=== PATIENT | female | born 1940 | race Caucasian/White ===

== ENCOUNTER 2019-12-27 13:57 | Observation (INO) ==
--- NOTE | 2019-12-27 14:40 | Emergency Department Note ---
History of Present Illness General Chief complaint: Chest Pain Time Seen by Provider: 12/27/19 14:23 Source: patient History of Present Illness Provider complaint: Chest pain Onset (ago): hour(s) Location: chest Radiation: back Pain Consistency: + now resolved Quality: + other (Heaviness, electric shock and indigestion) Relieved By: + none Exacerbated By: + none Associated symptoms: + cough (Mild nonproductive cough started this morning), + headaches, + shortness of breath (Mild shortness of breath with chest pain now resolved) and + other (Difficulty finding words since Monday); no fever/chills, no malaise and no nausea/vomiting This is a 79-year-old female with a history of hemorrhagic CVA and atrial fibrillation presenting with chest pain starting approximately 9 AM this morning. She describes it as a heaviness with electric shocks and indigestion in the left side of her chest rating to her back. No modifying factors. It was associated with some mild shortness of breath which is now resolved. She also states that she developed a mild cough this morning. She denies any loss of taste or smell, abdominal pain, diarrhea, fever, malaise or known exposure to COVID-19. She does state that the chest pain is now resolved. She also states that she had difficulty finding words for several hours on Monday. She states that she has not returned to herself and sometimes feels like she has to struggle to remember words. She does state that she saw her research consultant recently who placed her on water pills for swelling in both of her legs. She denies any numbness or weakness in her arms or legs except for some tingling in both her arms which is normal for her due to her carpal tunnel syndrome. She denies any trouble walking. Home Medications Home Medications Medication Instructions Recorded Confirmed Type amlodipine 5 mg PO DAILY 12/27/19 12/27/19 History cholecalciferol (vitamin D3) 25 mcg PO DAILY 12/27/19 12/27/19 History [Vitamin D3] cyanocobalamin (vitamin B-12) 1,000 mcg PO DAILY 12/27/19 12/27/19 History [Vitamin B-12] dicyclomine [Bentyl] 10 mg PO QID PRN 12/27/19 12/27/19 History fluticasone propionate [Flonase 1 spray INTRANASAL BID 12/27/19 12/27/19 History Allergy Relief] furosemide [Lasix] 20 mg PO Q OTHER DAY 12/27/19 12/27/19 History hydrocortisone 1 applic TOPICAL BID PRN 12/27/19 12/27/19 History levetiracetam [Keppra] 1,000 mg PO BID 12/27/19 12/27/19 History losartan [Cozaar] 100 mg PO DAILY 12/27/19 12/27/19 History magnesium oxide 400 mg PO DAILY 12/27/19 12/27/19 History metoprolol succinate [Toprol XL] 12.5 mg PO DAILY 12/27/19 12/27/19 History omeprazole 20 mg PO DAILY 12/27/19 12/27/19 History potassium chloride [Klor-Con M10] 10 meq PO UD 12/27/19 12/27/19 History ropinirole [Requip] 0.25 mg PO HS 12/27/19 12/27/19 History rosuvastatin [Crestor] 20 mg PO DAILY 12/27/19 12/27/19 History sertraline [Zoloft] 25 mg PO DAILY 12/27/19 12/27/19 History Allergies Allergy/AdvReac Type Severity Reaction Status Date / Time kiwi Allergy Intermediate ITCHY Verified 12/27/19 16:19 lactulose AdvReac Gastrointestinal Verified 12/27/19 16:19 Upset Past Med/Surg History Medical History Carpal tunnel syndrome Cerebral amyloid angiopathy GERD (gastroesophageal reflux disease) Hemorrhagic stroke HTN (hypertension) Paroxysmal atrial fibrillation Paroxysmal atrial tachycardia RLS (restless legs syndrome) Seizure disorder Surgical History (Updated 12/27/19 @ 17:02 by Jackie Schreiber PA-C) H/O: hysterectomy Hx of colonoscopy S/P cholecystectomy Family History Other Cancer Diabetes Heart disease Social History Smoking Status: Never smoker Hx Alcohol Use: Yes Preferred Language: [place] Citizen Current Living Situation: Family Feels Safe at Home: Yes Review of Systems See HPI for pertinent positives & negatives. and A total of 10 systems reviewed and were otherwise negative Physical Exam Vital Signs Vital Signs - 24 hr 12/27/19 14:00 12/27/19 14:06 12/27/19 14:11 Temperature 36.4 C L Temperature Source Oral Pulse Rate 62 79 71 Pulse Rate from SpO2 Sensor 68 65 Pulse Rhythm Regular Pulse Strength Normal Respiratory Rate 20 19 21 Respiratory Effort / Characteristics Non-Labored Spontaneous Respiratory Depth Normal Respiratory Pattern Regular Blood Pressure 191/82 H 191/82 H Blood Pressure Mean 118 98 Blood Pressure Position Sitting Pulse Oximetry 100 97 98 Oxygen Delivery Method Room Air Sepsis Recent Fever Within 48 Hours No Sepsis New/Unexplained Change in Mental Status No Sepsis Action Taken by Nursing No Action Required 12/27/19 14:30 12/27/19 14:51 12/27/19 16:13 Temperature Temperature Source Pulse Rate 62 60 Pulse Rate from SpO2 Sensor 64 61 Pulse Rhythm Pulse Strength Respiratory Rate 12 23 Respiratory Effort / Characteristics Respiratory Depth Respiratory Pattern Blood Pressure 164/88 H Blood Pressure Mean 98 Blood Pressure Position Pulse Oximetry 99 99 98 Oxygen Delivery Method Room Air Room Air Sepsis Recent Fever Within 48 Hours Sepsis New/Unexplained Change in Mental Status Sepsis Action Taken by Nursing 12/27/19 16:30 12/27/19 17:00 12/27/19 17:30 Temperature Temperature Source Pulse Rate 60 65 67 Pulse Rate from SpO2 Sensor 59 L 68 67 Pulse Rhythm Pulse Strength Respiratory Rate 20 19 18 Respiratory Effort / Characteristics Respiratory Depth Respiratory Pattern Blood Pressure 154/86 H 159/87 H 172/118 H Blood Pressure Mean 100 127 147 Blood Pressure Position Pulse Oximetry 93 96 98 Oxygen Delivery Method Room Air Sepsis Recent Fever Within 48 Hours Sepsis New/Unexplained Change in Mental Status Sepsis Action Taken by Nursing 12/27/19 19:12 12/27/19 19:24 Temperature Temperature Source Pulse Rate 71 71 Pulse Rate from SpO2 Sensor 68 Pulse Rhythm Pulse Strength Respiratory Rate 17 17 Respiratory Effort / Characteristics Respiratory Depth Respiratory Pattern Blood Pressure 165/103 H 165/103 H Blood Pressure Mean 135 Blood Pressure Position Pulse Oximetry 97 97 Oxygen Delivery Method Room Air Room Air Sepsis Recent Fever Within 48 Hours Sepsis New/Unexplained Change in Mental Status Sepsis Action Taken by Nursing Constitutional: Vital signs reviewed. Eyes: Pupils are equal round reactive to light. Conjunctiva are noninjected. ENT: Pharynx is clear without erythema or exudate. Mucous membranes are moist. Neck supple without meningeal signs. Respiratory: Clear to auscultation bilaterally. Breath sounds are equal b ilaterally. Cardiovascular: Regular rate and rhythm. No rubs or gallops. GI: Soft, nondistended and nontender. Bowel sounds are present. Musculoskeletal: No peripheral edema. No lower extremity tenderness. Integumentary: No cyanosis. or jaundice. Neurologic: The patient is awake and alert. Cranial nerves II-XII are intact. Motor is 5 out of 5 all extremities. Sensation is intact to light touch all extremities. Normal speech. No pronator drift. No limb ataxia. Psychiatric: Normal affect. Not anxious appearing. Course Administered Medications Discontinued Medications Furosemide (Furosemide 40 Mg Tab) 20 mg PO ONE STA Stop: 12/27/19 18:05 Last Admin: 12/27/19 18:42 Dose: 20 mg Documented by: [id number] Nitroglycerin (Nitroglycerin 2% Ointment 30gm Tube) 0.5 inch EXT NOW ONE Stop: 12/27/19 15:58 Last Admin: 12/27/19 16:15 Dose: 0.5 inch Documented by: [id number] Medical Decision Making Differential Diagnosis Unstable angina, [place], CVA, intracranial hemorrhage, pleurisy, pneumonia Medical Records Attestation: I reviewed the patient's medical records. I did perform a limited focused review of portions of the patient's old chart on the electronic medical record. The patient has had no recent pertinent visits to this hospital. Home Medications Current Medication List: was personally reviewed by me Laboratory Data Attestation: I reviewed the patient's lab results. Result diagrams: 12/27/19 14:18 12/27/19 14:18 Lab Results 12/27/19 12/27/19 12/27/19 Range/Units 14:18 14:18 14:18 WBC 4.78 L (4.8-10.8) K/uL RBC 4.77 (4.2-5.4) M/uL Hgb 14.3 (12.0-16.0) g/dL Hct 41.6 (37-47) % MCV 87.2 (80-100) fL MCH 30.0 (25-34) pg MCHC 34.4 (32-36) g/dL RDW Std Deviation 41.5 (36.4-46.3) fL RDW Coeff of Monica 12.9 (11.5-14.5) % Plt Count 156 (130-400) K/uL MPV 11.1 H (7.4-10.4) fL Immature Gran % (Auto) 0.2 % Neut % (Auto) 66.1 % Lymph % (Auto) 23.2 % [place] % (Auto) 8.2 % Eos % (Auto) 2.1 % Baso % (Auto) 0.2 % Neut # (Auto) 3.16 (1.4-6.5) K/uL Lymph # (Auto) 1.11 L (1.2-3.4) K/uL [place] # (Auto) 0.39 (0.11-0.59) K/uL Eos # (Auto) 0.10 (0-0.5) K/uL Baso # (Auto) 0.01 (0-0.2) K/uL Immature Gran # (Auto) 0.01 (0.00-0.02) K/uL PT 10.8 (9.0-12.0) Seconds INR 1.0 (0.9-1.1) APTT 30.9 (21.0-31.0) Seconds PTT Ratio 1.1 Sodium 139 (136-145) mmol/L Potassium 3.7 (3.5-5.1) mmol/L Chloride 109 H (98-107) mmol/L Carbon Dioxide 26 (21-32) mmol/L Anion Gap 4.0 (3-11) BUN 11 (7-18) mg/dl Creatinine 0.82 (0.6-1.2) mg/dl Est Cr Clr Drug Dosing 56.2 ml/min Est GFR ( Amer) 78.9 Est GFR (Non-Af Amer) 68.1 BUN/Creatinine Ratio 13.4 (10-20) Glucose 94 (70-99) mg/dl Calcium 9.0 (8.5-10.1) mg/dl Total Bilirubin 0.5 (0.2-1) mg/dl AST 18 (15-37) U/L ALT 23 (12-78) U/L Alkaline Phosphatase 118 H (45-117) U/L Troponin I < 0.015 (0-0.045) ng/ml Total Protein 7.7 (6.4-8.2) gm/dl Albumin 3.7 (3.4-5.0) gm/dl Globulin 4.0 (2.5-4.0) gm/dl Albumin/Globulin Ratio 0.9 (0.9-2) COVID-19 Eval Order SARS-CoV-2, RNA, NAAT (NEGATIVE) 12/27/19 12/27/19 Range/Units 16:30 16:30 WBC (4.8-10.8) K/uL RBC (4.2-5.4) M/uL Hgb (12.0-16.0) g/dL Hct (37-47) % MCV (80-100) fL MCH (25-34) pg MCHC (32-36) g/dL RDW Std Deviation (36.4-46.3) fL RDW Coeff of Monica (11.5-14.5) % Plt Count (130-400) K/uL MPV (7.4-10.4) fL Immature Gran % (Auto) % Neut % (Auto) % Lymph % (Auto) % [place] % (Auto) % Eos % (Auto) % Baso % (Auto) % Neut # (Auto) (1.4-6.5) K/uL Lymph # (Auto) (1.2-3.4) K/uL [place] # (Auto) (0.11-0.59) K/uL Eos # (Auto) (0-0.5) K/uL Baso # (Auto) (0-0.2) K/uL Immature Gran # (Auto) (0.00-0.02) K/uL PT (9.0-12.0) Seconds INR (0.9-1.1) APTT (21.0-31.0) Seconds PTT Ratio Sodium (136-145) mmol/L Potassium (3.5-5.1) mmol/L Chloride (98-107) mmol/L Carbon Dioxide (21-32) mmol/L Anion Gap (3-11) BUN (7-18) mg/dl Creatinine (0.6-1.2) mg/dl Est Cr Clr Drug Dosing ml/min Est GFR ( Amer) Est GFR (Non-Af Amer) BUN/Creatinine Ratio (10-20) Glucose (70-99) mg/dl Calcium (8.5-10.1) mg/dl Total Bilirubin (0.2-1) mg/dl AST (15-37) U/L ALT (12-78) U/L Alkaline Phosphatase (45-117) U/L Troponin I (0-0.045) ng/ml Total Protein (6.4-8.2) gm/dl Albumin (3.4-5.0) gm/dl Globulin (2.5-4.0) gm/dl Albumin/Globulin Ratio (0.9-2) COVID-19 Eval Order Cov[facility]19 [facility] SARS-CoV-2, RNA, NAAT NEGATIVE (NEGATIVE) Imaging Data Radiologist's Impression: CT head/brain wo con CLINICAL HISTORY: Achalasia. Possible acute stroke COMPARISON STUDY: 06/02/2015 TECHNIQUE: Axial CT of the brain is performed from the vertex to the skull base. IV contrast was not administered for this examination. A dose lowering technique was utilized adhering to the principles of ALARA. CT DOSE: 537.48 mGy.cm FINDINGS: No intra or extra-axial mass lesions are visualized. There is no CT evidence of acute cortical infarction. There is no evidence of midline shift. There is no acute hemorrhage. No calvarial fractures are visualized. There are moderate white matter hypodensities likely on a small vessel basis. There is no evidence of pathologic ventricular dilatation. There is no evidence of acute sinusitis IMPRESSION: No acute intracranial findings ACT 112: Negative or not required by law. Electronically signed by: Rory Gallegos M.D. 12/27/2019 3:02 PM XR chest 1V portable CLINICAL HISTORY: Atypical chest pain COMPARISON STUDY: No previous studies for comparison. FINDINGS: The heart is mildly enlarged. There is no failure. There are subtle interstitial basilar opacities likely atelectatic although an infectious/inflammatory processes could appear similar. There are no pleural effusions.[ IMPRESSION: 1. Mild cardiomegaly 2. Subtle basilar opacities statistically atelectatic although an infectious/inflammatory process could appear similar ACT 112: Negative or not required by law. Electronically signed by: Rory Gallegos M.D. 12/27/2019 2:56 PM ECG Data Attestation: I personally reviewed and interpreted this ECG as follows: Indication: + chest pain Rate (beats per minute): 67 Rhythm: + normal sinus ECG [place]: + Normal ECG ST segments: no ST elevation ECG Findings: + PACs MDM Narrative I did evaluate the patient as noted above. The patient is presenting with episodic chest pain since this morning. She is not currently having any chest discomfort. She also has strokelike symptoms starting several days ago which have improved significantly but she states she does not feel back to baseline. She is neurologically intact on exam without any signs of aphasia. She does have a prior history of hemorrhagic stroke and so does not take any anticoagulation or aspirin. IV access was established. I did place an order for continuous cardiac monitoring. The monitor showed Normal sinus rhythm at a rate of 66 bpm. I did order and personally review the patient's 12-lead EKG as described above. She has no acute ischemic findings. I did order and personally reviewed the images of the patient's chest x-ray as described above. There is no evidence of pneumonia or consolidation. I did order and review the patient's blood work as noted in the electronic medical record. CBC shows mild leukopenia. She is not anemic. Electrolytes are unremarkable. Troponin is negative. I did order a CT of the head. I did review the images myself as well as the radiology report as described above. There is no evidence of acute intracranial abnormality. I did reassess the patient. She remains asymptomatic. She is still hypertensive and so I did give her nitroglycerin paste half inch to the anterior chest wall. Her blood pressure did come down to 164/88. I did recommend hospitalization for further evaluation of her symptoms. I did discuss the case with the hospitalist and correctional case records supervisor. Impression & Plan Chest pain, Stroke-like symptom Discharge Plan Visit Data Chief Complaint: Chest Pain ED Provider: Bob Dueñas Discharge Problem: Chest pain, Stroke-like symptom Patient Disposition: Being Evaluated by Hospitalist Discharge Instructions Interventions: ED Discharge Assessment Last Done: 12/27/19 19:24 Forms Stand Alone Forms: [facility] Prescriptions Prescriptions: No Action cyanocobalamin (vitamin B-12) [Vitamin B-12] 1,000 mcg Tablet 1,000 mcg PO DAILY RF: 0 amlodipine 5 mg tablet 5 mg PO DAILY RF: 0 ropinirole [Requip] 0.25 mg tablet 0.25 mg PO HS RF: 0 sertraline [Zoloft] 25 mg tablet 25 mg PO DAILY RF: 0 omeprazole 20 mg capsule,delayed release(DR/EC) 20 mg PO DAILY RF: 0 hydrocortisone 2.5 % cream 1 applic TOPICAL BID PRN (Reason: REDNESS ON FACE) RF: 0 furosemide [Lasix] 20 mg tablet 20 mg PO Q OTHER DAY RF: 0 metoprolol succinate [Toprol XL] 25 mg tablet extended release 24 hr 12.5 mg PO DAILY RF: 0 losartan [Cozaar] 100 mg tablet 100 mg PO DAILY RF: 0 fluticasone propionate [Flonase Allergy Relief] 50 mcg/actuation spray,suspension 1 spray intranasal BID RF: 0 dicyclomine [Bentyl] 10 mg Capsule 10 mg PO QID PRN (Reason: ABD PAIN) RF: 0 rosuvastatin [Crestor] 20 mg tablet 20 mg PO DAILY RF: 0 potassium chloride [Klor-Con M10] 10 mEq tablet,ER particles/crystals 10 meq PO UD RF: 0 levetiracetam [Keppra] 1,000 mg tablet 1,000 mg PO BID RF: 0 cholecalciferol (vitamin D3) [Vitamin D3] 25 mcg (1,000 unit) Tablet 25 mcg PO DAILY RF: 0 magnesium oxide 400 mg magnesium Tablet 400 mg PO DAILY RF: 0 Referrals Referrals: Teresa Beltran DO [Primary Care Provider] - Discharge Problem: Chest pain Qualifiers: Chest pain type: unspecified Qualified Code(s): R07.9 - Chest pain, unspecified
[2019-12-27 14:53] LABS: Basophils # (auto) 0.01 K/uL (0-0.2); Basophils % (auto) 0.2 %; Eosinophils % (auto) 2.1 %; Hematocrit (blood only) 41.6 % (37-47); Hemoglobin 14.3 g/dL (12.0-16.0); Immature Granulocytes # (auto) 0.01 K/uL (0.00-0.02); Immature Granulocytes % (auto) 0.2 %; Lymphocytes # (auto) 1.11 K/uL (1.2-3.4); Lymphocytes % (auto) 23.2 %; Mean Corpuscular Hgb Conc 34.4 g/dL (32-36); Mean Corpuscular Volume 87.2 fL (80-100); Mean Platelet Volume 11.1 fL (7.4-10.4); Monocytes # (auto) 0.39 K/uL (0.11-0.59); Monocytes % (auto) 8.2 %; Neutrophils # (auto) 3.16 K/uL (1.4-6.5); Neutrophils % (auto) 66.1 %; Platelet Count 156 K/uL (130-400); RDW Coefficient of Variation 12.9 % (11.5-14.5); RDW Standard Deviation 41.5 fL (36.4-46.3); Red Blood Count 4.77 M/uL (4.2-5.4); White Blood Count 4.78 K/uL (4.8-10.8)
--- NOTE | 2019-12-27 14:57 | XRay Report ---
XR chest 1V portable CLINICAL HISTORY: Atypical chest pain COMPARISON STUDY: No previous studies for comparison. FINDINGS: The heart is mildly enlarged. There is no failure. There are subtle interstitial basilar op acities likely atelectatic although an infectious/inflammatory processes could appear similar. There are no pleural effusions.[ IMPRESSION: 1. Mild cardiomegaly 2. Subtle basilar opacities statistically atelectatic although an infectious/inflammatory process cou ld appear similar ACT 112: Negative or not required by law. Electronically signed by: Rory Gallegos M.D. 12/27/2019 2:56 PM
[2019-12-27 15:02] LABS: Alanine Aminotransferase 23 U/L (12-78); Albumin Level 3.7 gm/dl (3.4-5.0); Aspartate Aminotransferase 18 U/L (15-37); BUN Creatinine Ratio 13.4 (10-20); Blood Urea Nitrogen 11 mg/dl (7-18); Carbon Dioxide 26 mmol/L (21-32); Chloride 109 mmol/L (98-107); Creatinine Clr Calc Pharmacy 56.2 ml/min; Est GFR (African American) 78.9; Est GFR (Non-African American) 68.1; Glucose 94 mg/dl (70-99); Potassium 3.7 mmol/L (3.5-5.1); Sodium 139 mmol/L (136-145)
--- NOTE | 2019-12-27 15:04 | CT Scan Report ---
CT head/brain wo con CLINICAL HISTORY: Achalasia. Possible acute stroke COMPARISON STUDY: 06/02/2015 TECHNIQUE: Axial CT of the brain is performed from the vertex to the skull base. IV contrast was not administered for this examination. A dose lowering technique was utilized adhering to the principles of ALARA. CT DOSE: 537.48 mGy.cm FINDINGS: No intra or extra-axial mass lesions are visualized. There is no CT evidence of acute cortical infarc tion. There is no evidence of midline shift. There is no acute hemorrhage. No calvarial fractures ar e visualized. There are moderate white matter hypodensities likely on a small vessel basis. There is no evidence of pathologic ventricular dilatation. There is no evidence of acute sinusitis IMPRESSION: No acute intracranial findings ACT 112: Negative or not required by law. Electronically signed by: Rory Gallegos M.D. 12/27/2019 3:02 PM
[2019-12-27 15:06] LABS: Partial Thromboplastin Ratio 1.1; Partial Thromboplastin Time 30.9 Seconds (21.0-31.0); Prothrombin Time 10.8 Seconds (9.0-12.0)
[2019-12-27 15:07] LABS: Albumin Globulin Ratio 0.9 (0.9-2); Alkaline Phosphatase 118 U/L (45-117); Bilirubin,Total 0.5 mg/dl (0.2-1); Total Protein 7.7 gm/dl (6.4-8.2); Troponin I < 0.015 ng/ml (0-0.045)
[2019-12-27] MEDS ORDERED: NITROGLYCERIN 2% OINTMENT 30GM TUBE EXT ONE (15:57)
--- NOTE | 2019-12-27 17:03 | History & Physical Report ---
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 -Atypical chest/epigastric pain that has been intermittent since this morning, not relieved with ntg paste. Will try GI cocktail, GERD may be culprit -History of chronic atypical chest discomfort. Underwent cardiac catheterization by Dr. Bonilla on 03/29/2000 demonstrated essentially normal coronary arteries -Has discussed options in the past for further intervention but conservative medical management has been preferred as the risks of further evaluation/intervention appear to be greater than the benefit, per ORLANDO Valdez's note -ECG without acute ST changes, initial troponin negative. Monitor on telemetry, trend troponin, repeat ECG in AM, routine cardiology consult (2) Cerebral amyloid angiopathy: History of R occipital intraparenchymal hemorrhage in April 2015 complicated by seizure. Left intraventricular hemorrhage in 2018. Avoid antiplatelet and anticoagulation (3) Stroke-like symptom: Dysarthria reported from Monday that has since resolved but patient still not feeling like herself -Concern for TIA, patient with significant stroke history. CT head without acute intracranial findings. Obtaining MRI brain w/wo, echo with bubble study -Neuro checks, PT, OT, speech therapy evaluations (4) Paroxysmal atrial tachycardia: (5) Paroxysmal atrial fibrillation: History of arrhythmias including borderline Tachy-Emiliano Syndrome, asymptomatic SVT, PAT. No atrial fibrillation observed via professional nursing tutor monitoring last in December 2018 -Continue metoprolol and magnesium (6) HTN (hypertension): Uncontrolled. 191/82 initially but improved to 164/88 after ntg paste. Continue amlodipine, metoprolol and losartan (7) Seizure disorder: Continue Keppra BID (8) RLS (restless legs syndrome): Continue Requip HS (9) GERD (gastroesophageal reflux disease): Continue PPI DVT Ppx: Code status: FULL PCP: Ximena Dispo: Patient seen in collaboration with Dr. Kelly. Please see addendum. 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 Was eating breakfast today when she developed central, non-radiating epigastric pain that felt heavy in electric with associated SOB that lasted for a few minutes. Also endorses some visual changes at this time that resolved soon after. Thought that it could be due to acid reflux from eating foods with dairy the previous night, which is an exacerbation for her. But was concerned that it could have to do with her heart with significant history of arrhythmias. Also endorses some difficulty with word finding and slurred speech 3 days ago. Was with daughter at that time and had difficulty communicating her thoughts. Denies any swallowing issues or focal weakness or changes sensation at this time. Drank a Coca-Cola with improvement but continued to "not feel like herself" into today. Has history of intraparenchymal hemorrhage and cerebral amyloid angiopathy in the past with contraindication to anticoagulation. Currently still experiencing some epigastric discomfort after nitroglycerin paste. Denies any fever chills. No light headedness, headache or visual changes. No palpitations, shortness of breath or wheezing. No nausea, vomiting, abdominal pain, dysuria, diarrhea or constipation. Allergies Allergy/AdvReac Type Severity Reaction Status Date / Time kiwi Allergy Intermediate ITCHY Verified 12/27/19 16:19 lactulose AdvReac Gastrointestinal Verified 12/27/19 16:19 Upset Home Medications Home Medications Medication Instructions Recorded Confirmed Type amlodipine 5 mg PO DAILY 12/27/19 12/27/19 History cholecalciferol (vitamin D3) 25 mcg PO DAILY 12/27/19 12/27/19 History [Vitamin D3] cyanocobalamin (vitamin B-12) 1,000 mcg PO DAILY 12/27/19 12/27/19 History [Vitamin B-12] dicyclomine [Bentyl] 10 mg PO QID PRN 12/27/19 12/27/19 History fluticasone propionate [Flonase 1 spray INTRANASAL BID 12/27/19 12/27/19 History Allergy Relief] furosemide [Lasix] 20 mg PO Q OTHER DAY 12/27/19 12/27/19 History hydrocortisone 1 applic TOPICAL BID PRN 12/27/19 12/27/19 History levetiracetam [Keppra] 1,000 mg PO BID 12/27/19 12/27/19 History losartan [Cozaar] 100 mg PO DAILY 12/27/19 12/27/19 History magnesium oxide 400 mg PO DAILY 12/27/19 12/27/19 History metoprolol succinate [Toprol XL] 12.5 mg PO DAILY 12/27/19 12/27/19 History omeprazole 20 mg PO DAILY 12/27/19 12/27/19 History potassium chloride [Klor-Con M10] 10 meq PO UD 12/27/19 12/27/19 History ropinirole [Requip] 0.25 mg PO HS 12/27/19 12/27/19 History rosuvastatin [Crestor] 20 mg PO DAILY 12/27/19 12/27/19 History sertraline [Zoloft] 25 mg PO DAILY 12/27/19 12/27/19 History Past Med/Surg History Medical History Carpal tunnel syndrome Cerebral amyloid angiopathy GERD (gastroesophageal reflux disease) Hemorrhagic stroke HTN (hypertension) Paroxysmal atrial fibrillation Paroxysmal atrial tachycardia RLS (restless legs syndrome) Seizure disorder Surgical History (Updated 12/27/19 @ 17:02 by Jackie Schreiber PA-C) H/O: hysterectomy Hx of colonoscopy S/P cholecystectomy Family History Other Cancer Diabetes Heart disease Social History Smoking Status: Never smoker Hx Alcohol Use: Yes Alcohol type: beer and wine Hx Substance Use: No Preferred Language: Jamaican Communication Ability: Effective 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 Physical Exam Physical Exam: General Appearance: WD/WN, vitals as above, NAD, sitting up in bed, pleasant, conversing easily Head: normocephalic, atraumatic Eyes: normal inspection, PERRL, conjunctivae normal, anicteric sclerae ENT: external ear and nose normal, oropharynx normal Neck: normal visual inspection, trachea midline, no thyromegaly Respiratory: normal respiratory effort, lungs clear to auscultation, no wheeze, rales, rhonchi. No accessory muscle use Cardiovascular: regular rate, rhythm, no murmur, normal peripheral pulses, Trace BLE edema. Vessels: no JVD Chest: normal inspection of chest. Non-tender to palpation Abdomen/GI: normal bowel sounds, soft, nontender, no hepatosplenomegaly Extremities/Musculoskeletal: no cyanosis or clubbing, extremities motor strength 5/5 Neurologic: PERRL, EOMI, accommodation nl, no face palsy, no dysarthria, CN's II-XI intact bilaterally and moves all extremities Psychiatric: A+Ox3, euthymic affect Skin: no rashes, normal color, warm/dry Results & Data Results & Data ([facility]) Vital Signs (Past 12 Hours) Vital Signs Temp Pulse Resp BP Pulse Ox 12/27/19 16:13 60 23 164/88 H 98 12/27/19 14:51 99 12/27/19 14:30 62 12 99 12/27/19 14:11 71 21 98 12/27/19 14:06 79 19 191/82 H 97 12/27/19 14:00 36.4 C L 62 20 191/82 H 100 Laboratory Results Short CBC 12/27/19 Range/Units 14:18 WBC 4.78 L (4.8-10.8) K/uL Hgb 14.3 (12.0-16.0) g/dL Hct 41.6 (37-47) % Plt Count 156 (130-400) K/uL BMP 12/27/19 14:18 Sodium 139 Potassium 3.7 Chloride 109 H Carbon Dioxide 26 BUN 11 Creatinine 0.82 Glucose 94 Calcium 9.0 Cardiac Enzymes 12/27/19 Range/Units 14:18 Troponin I < 0.015 (0-0.045) ng/ml Liver Function 12/27/19 Range/Units 14:18 Total Bilirubin 0.5 (0.2-1) mg/dl AST 18 (15-37) U/L ALT 23 (12-78) U/L Alkaline Phosphatase 118 H (45-117) U/L Albumin 3.7 (3.4-5.0) gm/dl Diagnostic Findings CT head: IMPRESSION: No acute intracranial findings CXR: IMPRESSION: 1. Mild cardiomegaly 2. Subtle basilar opacities statistically atelectatic although an infectious/inflammatory process could appear similar ECG Additional Comments: Sinus rhythm with Premature supraventricular complexes Nonspecific ST abnormality Supervising Physician Co-Signing Physician Notes ATTENDING ADDENDUM: pt seen and examined, care -coordinated with Jackie CHOW 79 yo F with complex cardiac hx -presented to ER with complain of chest heaviness /discomfort , episode of slurred speech -3 days back -has resolved no weakness or paresthesia on admission BP was 191/81 pt admitted to tele floor , hypertensive urgency possible causing chest heaviness , R/O ACS serial cardiac markers , resting ECHO , cardiology eval MRI of brain -r/o CVA refer to further documentation by Jackie CHOW for discussion of other chronic issues Sydnee Kelly MD (1) Chest pain Chest pain type: unspecified Qualified Code(s): R07.9 - Chest pain, unspecified
[2019-12-27] MEDS ORDERED: MAGNESIUM HYDROXIDE SUSP 30 ML UDC PO PRN (17:33)
[2019-12-27] MEDS ORDERED: NITROGLYCERIN SL 0.4 MG/TAB TAB SL PRN (17:33)
[2019-12-27] MEDS ORDERED: ALUMINUM/MAGNESIUM SUSP 30 ML UDC PO PRN (17:33)
[2019-12-27] MEDS ORDERED: POLYETHYLENE (MIRALAX) 17 GM PACK PO PRN (17:33)
[2019-12-27] MEDS ORDERED: ACETAMINOPHEN 325 MG TAB PO PRN (17:33)
[2019-12-27] MEDS ORDERED: ALUMINUM/MAGNESIUM SUSP 18 ML, LIDOCAINE HCL VISCOUS 2% 6 ML, BARCODE IDENTIFIER 1 EA PO ONE (18:00)
[2019-12-27] MEDS ORDERED: FUROSEMIDE 40 MG TAB PO STA (18:04)
[2019-12-27] MEDS ORDERED: LORazepam 0.5 MG/1 ML VIAL IV ONE (18:35)
[2019-12-27] MEDS ORDERED: GI COCKTAIL ED USE PO ONE (18:45)
[2019-12-27] MEDS ORDERED: DICYCLOMINE HCL 10 MG CAP PO PRN (20:15)
[2019-12-27] MEDS ORDERED: LORazepam 0.5 MG/1 ML VIAL IV SCH (20:15)
[2019-12-27] MEDS ORDERED: GADOBUTROL 65ML VIAL IV ONE (20:15)
[2019-12-27] MEDS ORDERED: HYDROCORTISONE 2.5% CR 30 GM TUBE EXT PRN (20:15)
--- NOTE | 2019-12-27 20:27 | Magnetic Resonance Report ---
MRI OF THE BRAIN WITHOUT AND WITH IV CONTRAST CLINICAL HISTORY: Slurred speech. Evaluate for cerebrovascular accident. COMPARISON STUDY: Head CT performed earlier today. TECHNIQUE: Utilizing a 1.5 Roberta magnet and dedicated coil, multiplanar, multiecho imaging of the br ain was performed pre and postcontrast administration. IV administration of 7.5 mL of Gadavist contr ast was uneventful. FINDINGS: There are no foci of restricted effusion to suggest acute infarct. No acute intracranial he morrhage, midline shift or mass effect is present. There is moderate atrophy. White matter T2 hyperin tense foci suggest moderate small vessel disease. Note is made of encephalomalacia with a 1.7 cm hypo intense focus within the right occipital lobe on axial image 12 of 22, most evident on the gradient e cho sequence. This corresponds to the hematoma shown on head CT of June 02, 2015. Mild ventricular d ilatation is due to atrophy. Basilar cisterns are patent. There are no extra axial collections. There is no intracranial mass or pathologic enhancement. A small focus of encephalomalacia within the righ t frontal lobe is noted. Orbits are unremarkable. Flow-voids for the major intracranial vessels are p resent. IMPRESSION: 1. No acute intracranial findings. 2. No intracranial mass or pathologic enhancement. 3. Moderate atrophy and small vessel disease. 4. 1.7 cm T2 hypointense focus within the right occipital lobe. This represents hemosiderin depositio n at site of hematoma shown on head CT of June 02, 2015. This is chronic. ACT 112: Negative or not required by law. Electronically signed by: Prosper Coleman M.D. 12/27/2019 8:26 PM
[2019-12-27] MEDS: NITROGLYCERIN 2% OINTMENT 30GM TUBE EXT SCH ×2 (20:50→23:46)
[2019-12-27] MEDS ORDERED: rOPINIRole HCL 0.25 MG TABLET PO SCH (21:00)
[2019-12-27] MEDS: levETIRAcetam 500 MG TAB PO SCH (21:15)
[2019-12-27] MEDS: FLUTICASONE PROPIONATE NA SPR 16 GM BTL NAE SCH (21:16)
[2019-12-28 02:15] LABS: Mean Corpuscular Hemoglobin 29.2 pg (25-34); Mean Corpuscular Hgb Conc 33.3 g/dL (32-36); Mean Corpuscular Volume 87.6 fL (80-100); Platelet Count 157 K/uL (130-400); RDW Coefficient of Variation 12.9 % (11.5-14.5); RDW Standard Deviation 41.5 fL (36.4-46.3); Red Blood Count 4.45 M/uL (4.2-5.4); White Blood Count 4.89 K/uL (4.8-10.8)
[2019-12-28 02:41] LABS: BUN Creatinine Ratio 15.5 (10-20); Calcium 8.5 mg/dl (8.5-10.1); Creatinine Clr Calc Pharmacy 54.2 ml/min; Est GFR (African American) 75.5; Est GFR (Non-African American) 65.2; Potassium 3.5 mmol/L (3.5-5.1)
[2019-12-28 02:51] LABS: Thyroid Stimulating Hormone 1.97 uIu/ml (0.300-4.500)
[2019-12-28] MEDS: NITROGLYCERIN 2% OINTMENT 30GM TUBE EXT SCH (06:34)
[2019-12-28] MEDS: FLUTICASONE PROPIONATE NA SPR 16 GM BTL NAE SCH (08:23)
[2019-12-28] MEDS: levETIRAcetam 500 MG TAB PO SCH (08:24)
--- NOTE | 2019-12-28 08:49 | Cardiology Consultation ---
Date of Consultation December 28, 2019 Assessment & Plan (1) Atypical chest pain: (2) Stroke-like symptom: (3) Labile hypertension: (4) PAC (premature atrial contraction): No objective evidence of ischemia, acute coronary syndrome. Atypical chest discomfort unchanged when discussed with patient and prior medical records reviewed. Consider outpatient stress testing per follow-up post discharge. Recommend conservative medical management. With history of borderline tachybradycardia syndrome, I will not increase beta-concepcion at this time, however, this may be considered in the outpatient setting. Continue other cardiovascular medications as previously ordered. No further inpatient cardiac testing at this time. Thank you for allowing me to participate in the care of your patient. History of Present Illness Reason for Consultation: chest pain Requesting Physician: Dr. henriquez Attending Physician: Jorden Cooper MD History of Present Illness 79-year-old female with complex medical history noted below presented emergency department with chest discomfort. Initial evaluation including ECG and serial cardiac enzymes unremarkable. Patient describes a sharp "jabbing" discomfort involving her substernal region and left side of her chest. Unchanged when prior cardiology office notes reviewed. States she came to the ER due to word finding issues, slurred speech, gait instability, and some mental "fogginess". MRI of the brain demonstrates moderate atrophy and small vessel disease without acute intracranial findings. Telemetry reveals sinus rhythm with premature atrial complexes. Currently, patient is feeling well. Denies chest discomfort, focal weakness, visual changes, slurred speech, word finding issues, paresthesias, or gait instability. Blood pressure elevated on admission, however, somewhat labile throughout the evening and early a.m. hours. Denies orthopnea, PND, palpitations, syncope, or near syncope. Currently offers no concerns/complaints. Problem List: 1. Borderline Tachy-Emiliano Syndrome 2. History of long R-P tachycardia consistent with either an atrial tachycardia or an atypical form of AVNRT 3. Suspected though not confirmed/documented paroxysmal atrial fibrillation 4. Cerebral amyloid angiopathy 5. April 2015 right occipital intraparenchymal hemorrhage complicated by seizure 6. October 2017 hospitalization with a traumatic intraventricular hemorrhage with loss of consciousness. Patient seen in cardiology consultation at that time due to sinus arrhythmia and sinus bradycardia in setting of increased vagal tone. She had three epsiodes of near syncope, one at [facility] in the midst of significant GI upset. Recommendations at that time included holding beta-concepcion therapy, assessment for Tachy-Emiliano Syndrome and chronotropic competence. ASA, prescribed by Neurology, was discontinued. 7. Hypertension 8. Mitral insufficiency. 9. Cardiac catheterization by Dr. Bonilla on 03/29/2000 demonstrated essentially normal coronary arteries. 10. GERD Allergies Allergy/AdvReac Type Severity Reaction Status Date / Time kiwi Allergy Intermediate ITCHY Verified 12/27/19 16:19 lactulose AdvReac Gastrointestinal Verified 12/27/19 16:19 Upset Home Medications Home Medications Medication Instructions Recorded Confirmed Type amlodipine 5 mg PO DAILY 12/27/19 12/27/19 History cholecalciferol (vitamin D3) 25 mcg PO DAILY 12/27/19 12/27/19 History [Vitamin D3] cyanocobalamin (vitamin B-12) 1,000 mcg PO DAILY 12/27/19 12/27/19 History [Vitamin B-12] dicyclomine [Bentyl] 10 mg PO QID PRN 12/27/19 12/27/19 History fluticasone propionate [Flonase 1 spray INTRANASAL BID 12/27/19 12/27/19 History Allergy Relief] furosemide [Lasix] 20 mg PO Q OTHER DAY 12/27/19 12/27/19 History hydrocortisone 1 applic TOPICAL BID PRN 12/27/19 12/27/19 History levetiracetam [Keppra] 1,000 mg PO BID 12/27/19 12/27/19 History losartan [Cozaar] 100 mg PO DAILY 12/27/19 12/27/19 History magnesium oxide 400 mg PO DAILY 12/27/19 12/27/19 History metoprolol succinate [Toprol XL] 12.5 mg PO DAILY 12/27/19 12/27/19 History omeprazole 20 mg PO DAILY 12/27/19 12/27/19 History potassium chloride [Klor-Con M10] 10 meq PO UD 12/27/19 12/27/19 History ropinirole [Requip] 0.25 mg PO HS 12/27/19 12/27/19 History rosuvastatin [Crestor] 20 mg PO DAILY 12/27/19 12/27/19 History sertraline [Zoloft] 25 mg PO DAILY 12/27/19 12/27/19 History Patient History Medical History Carpal tunnel syndrome Cerebral amyloid angiopathy GERD (gastroesophageal reflux disease) Hemorrhagic stroke HTN (hypertension) Paroxysmal atrial fibrillation Paroxysmal atrial tachycardia RLS (restless legs syndrome) Seizure disorder Surgical History H/O: hysterectomy Hx of colonoscopy S/P cholecystectomy Family History Other Cancer Diabetes Heart disease Social History Smoking Status: Never smoker Hx Alcohol Use: Yes Alcohol type: beer and wine Hx Substance Use: No Preferred Language: Greenlandic Communication Ability: Effective Head Of Sales Required: No Beliefs That Will Affect Care: None Current Living Situation: Spouse Other Information That Helps Us Care for You: No Feels Safe at Home: Yes Safety Concerns: Feels Safe At This Time Assistive Devices: None Review of Systems Review of Systems: All systems reviewed & are unremarkable except as noted in HPI & below Physical Exam Constitutional: well developed and well nourished; no acute distress Respiratory: normal respiratory effort, lungs clear to auscultation no respiratory distress and no labored breathing Auscultation: no crackles, no rales, no rhonchi, no wheezes and no pleural rub Cardiovascular: Rate/Rhythm: regular rate; + abnormal rhythm (Regular with frequent ectopy) Heart Sounds: normal S1 and normal S2; no murmur Palpation: normal PMI Vessels: radial pulses present; no JVD Extremities: normal capillary refill; no edema Gastrointestinal (Abdomen): Inspection/Auscultation: abdomen normal to inspection and normal bowel sounds; abdomen not distended and no abdominal edema Musculoskeletal: Extremities: strength 5/5 throughout Skin: no rashes, warm and dry Neurologic: PERRL, EOMI, accommodation nl, no face palsy, no dysarthria Motor/Sensory: no tremor and no pronator drift Psychiatric: A+Ox3, euthymic affect Results & Data ([facility]) Vital Signs (Past 12 Hours) Vital Signs Temp Pulse Pulse Resp BP Pulse Ox 12/28/19 08:02 36.4 C L 64 19 162/77 H 98 12/28/19 08:00 62 12/28/19 06:11 117/77 12/28/19 03:52 36.4 C L 68 16 106/60 96 12/28/19 00:40 96 H 12/27/19 23:28 36.6 C 74 16 102/56 L 97
[2019-12-28] MEDS ORDERED: CHOLECALCIFEROL 1,000 UNITS 25 MCG TAB PO SCH (09:00)
[2019-12-28] MEDS ORDERED: amLODIPine BESYLATE 5 MG TAB PO SCH (09:00)
[2019-12-28] MEDS ORDERED: LOSARTAN POTASSIUM 50 MG TAB PO SCH (09:00)
[2019-12-28] MEDS ORDERED: FUROSEMIDE 20 MG TAB PO SCH (09:00)
[2019-12-28] MEDS ORDERED: POTASSIUM CHLORIDE 10 MEQ TABCR PO SCH (09:00)
[2019-12-28] MEDS ORDERED: METOPROLOL SUCC 25MG EXT REL TAB PO SCH (09:00)
[2019-12-28] MEDS ORDERED: ROSUVASTATIN CALCIUM 20 MG TAB PO SCH (09:00)
[2019-12-28] MEDS ORDERED: CYANOCOBALAMIN 500 MCG TABLET (VITAMIN B-12) PO SCH (09:00)
[2019-12-28] MEDS ORDERED: PANTOprazole 40 MG TAB PO SCH (09:00)
[2019-12-28] MEDS ORDERED: SERTRALINE HCL 50 MG TABLET PO SCH (09:00)
[2019-12-28] MEDS ORDERED: MAGNESIUM OXIDE 400 MG TAB PO SCH (09:00)
[2019-12-28] MEDS ORDERED: ACETAMINOPHEN 325 MG TAB PO PRN (11:28)
[2019-12-28] MEDS ORDERED: amLODIPine BESYLATE 5 MG TAB PO ONE (11:29)
--- NOTE | 2019-12-28 11:36 | Hospitalist Progress Note ---
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 She describes it as a heaviness with electric shocks and indigestion in the left side of her chest rating to her back" and in addition that patient discussed "that she had difficulty finding words for several hours on Monday. " -as per the admitting hospitalist assessments that the chest pain appears atypical in nature, possibly epigastric. History of chronic atypical chest discomfort. Underwent cardiac catheterization by Dr. Bonilla on 03/29/2000 demonstrated essentially normal coronary arteries -no acute EKG changes on presentation. troponins negative x 3 -12/28/[address] Stevens "No objective evidence of ischemia, acute coronary syndrome. Atypical chest discomfort unchanged when discussed with patient and prior medical records reviewed. Consider outpatient stress testing per follow-up post discharge. Recommend conservative medical management. With history of borderline tachybradycardia syndrome, I will not increase beta-concepcion at this time, however, this may be considered in the outpatient setting. Continue other cardiovascular medications as previously ordered. No further inpatient cardiac testing at this time" (2) Paroxysmal atrial fibrillation: History of arrhythmias including borderline Tachy-Emiliano Syndrome, asymptomatic SVT, PAT. No atrial fibrillation observed via oil heaterman monitoring last in December 2018 -Continue metoprolol and magnesium (3) Paroxysmal atrial tachycardia: -occasional PAT on telemetry (4) HTN (hypertension): -initially presented to ED on 12/27/2019 with blood pressure 191/82 initially but improved to 164/88 after nitropaste -Continue home dose losartan 100 mg daily, metoprolol succinate 12.5 mg daily -increase the home dose amlodipine from 5 mg to 10 mg daily -her daughter reports that the furosemide 20 mg every other day was a recently prescribed medication for leg edema - her legs do not appear to swollen currently (5) Stroke-like symptom: -Patient reported garbled speech on Monday that resolved -Patient not on blood thinners of antiplatelets because of History of R occipital intraparenchymal hemorrhage in April 2015 complicated by seizure and Left intraventricular hemorrhage in 2018. -MRI 12/27/2019: No acute intracranial findings. No intracranial mass or pathologic enhancement. Moderate atrophy and small vessel disease. 1.7 cm T2 hypointense focus within the right occipital lobe. This represents hemosiderin deposition at site of hematoma shown on head CT of June 02, 2015. This is chronic. -12/28/2019: no gross speech or swallowing impairments currently, no apparent motor deficits on exam, performed finger to nose testing well. her daughter updated and she requested inpatient neurology consult to assess -no history of diabetes, HBA1c lab ordered. already on Crestor 20 mg as outpatient, continue (6) Cerebral amyloid angiopathy: History of R occipital intraparenchymal hemorrhage in April 2015 complicated by seizure. Left intraventricular hemorrhage in 2018. (7) Seizure disorder: -Continue home dose Keppra BID (8) RLS (restless legs syndrome): Continue Requip HS (9) GERD (gastroesophageal reflux disease): Continue PPI Code status: FULL [facility] Admission and Anticipated Discharge Date Admission Date: December 27, 2019 Subjective no gross speech or swallowing impairments currently, no apparent motor deficits on exam, performed finger to nose testing well. her daughter updated and she requested inpatient neurology to assess patient subjectively feels well. on room air. no shortness of breath. no chest pain. no abdomen pain. no nausea. no vomiting. no other current symptoms on review of systems Review of Systems Review of Systems: All systems reviewed & are unremarkable except as noted in Subjective Physical Exam Constitutional: cooperative and comfortable Eyes: PERRL, conjunctivae normal, anicteric sclerae EOM intact bilaterally ENMT: external ear and nose normal, oropharynx normal Neck: normal visual inspection Respiratory: normal respiratory effort, lungs clear to auscultation Cardiovascular: Rate/Rhythm: regular rate Gastrointestinal (Abdomen): normal bowel sounds, soft, nontender, no hepatosplenomegaly Musculoskeletal: Head/Neck/Chest: normocephalic and head atraumatic Neurologic: moves all extremities Psychiatric: Orientation: alert and oriented x 3 Results & Data Results & Data ([facility]) Vital Signs (Past 12 Hours) Vital Signs Temp Pulse Pulse Resp BP Pulse Ox 12/28/19 08:02 36.4 C L 64 19 162/77 H 98 12/28/19 08:00 62 12/28/19 06:11 117/77 12/28/19 03:52 36.4 C L 68 16 106/60 96 12/28/19 00:40 96 H (1) Chest pain Chest pain type: unspecified Qualified Code(s): R07.9 - Chest pain, unspecified
[2019-12-28 12:26] LABS: Calcium 8.9 mg/dl (8.5-10.1); Creatinine Clr Calc Pharmacy 54.8 ml/min; Est GFR (African American) 76.6; Est GFR (Non-African American) 66.1
[2019-12-28] MEDS ORDERED: OPTIRAY 320 125ml IV ONE (12:42)
[2019-12-28 12:51] LABS: Estimated Average Glucose 126 mg/dl
--- NOTE | 2019-12-28 13:07 | CT Scan Report ---
NECK CTA HISTORY: rule out carotid stenosis TECHNIQUE: Multiaxial CT images of the neck were performed following the intravenous administration o f contrast to evaluate the major cervical vessels. Maximum intensity projection images were also obta ined. All measurements were calculated based on NASCET criteria. A dose lowering technique was utili zed adhering to the principles of ALARA. COMPARISON STUDY: Slurred speech. FINDINGS: The aortic arch and proximal great vessels are widely patent. Advanced atherosclerotic ruby que within the bilateral carotid bifurcations. This results in severe stenosis within the proximal 1 cm the right internal carotid artery. The stenosis is demonstrated to be greater than 90%. There is m ild stenosis of approximately 25% within the proximal left internal carotid artery. Remaining bilater al internal carotid arteries are patent. Questionable tiny filling defect seen within the distal left vertebral artery on image 263. This may be artifact. Otherwise, the bilateral vertebral arteries are widely patent. Of note, the left vertebral artery originates from the aortic arch. IMPRESSION: 1. High-grade/critical stenosis of greater than 90% within the proximal right internal carotid artery . 2. Approximately 25% stenosis within the proximal left internal carotid artery. ACT 112: Negative or not required by law. Electronically signed by: Morris Leal M.D. 12/28/2019 1:06 PM
[2019-12-28] MEDS ORDERED: SODIUM CHLORIDE 0.9% 500 ML IV SCH (13:45)
--- NOTE | 2019-12-28 13:53 | Communication Note ---
Date of Service: December 28, 2019 have discussed patient's case with Neurology Dr. Castellon by phone who recommended that a Neck CTA scan results show "High-grade/critical stenosis of greater than 90% within the proximal right internal carotid artery. Approximately 25% stenosis within the proximal left internal carotid artery." Dr. Castellon suggests that the right internal carotid stenosis can be follow by a Vascular Surgery clinic as outpatient. Hospitalist discussed these results with patient Puja Bah is to get IV fluids after the contrast study. Patient's preference would be to go home today since she feels subjectively well. Attempt to reach her daughter Alyssa by telephone went to [employer]
--- NOTE | 2019-12-28 14:42 | Discharge Summary ---
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 Was eating breakfast today when she developed central, non-radiating epigastric pain that felt heavy in electric with associated SOB that lasted for a few minutes. Also endorses some visual changes at this time that resolved soon after. Thought that it could be due to acid reflux from eating foods with dairy the previous night, which is an exacerbation for her. But was concerned that it could have to do with her heart with significant history of arrhythmias. Also endorses some difficulty with word finding and slurred speech 3 days ago. Was with daughter at that time and had difficulty communicating her thoughts. Denies any swallowing issues or focal weakness or changes sensation at this time. Drank a Coca-Cola with improvement but continued to "not feel like herself" into today. Has history of intraparenchymal hemorrhage and cerebral amyloid angiopathy in the past with contraindication to anticoagulation. Currently still experiencing some epigastric discomfort after nitroglycerin paste. Denies any fever chills. No light headedness, headache or visual changes. No palpitations, shortness of breath or wheezing. No nausea, vomiting, abdominal pain, dysuria, diarrhea or constipation. Principal Diagnosis Chest pain HTN (hypertension) right internal carotid artery stenosis Stroke-like symptom of slurred speech reported as outpatient (but no evidence of stroke by MRI imaging) Cerebral amyloid angiopathy Discharge Exam Constitutional cooperative and comfortable Eyes PERRL, conjunctivae normal, anicteric sclerae EOM intact bilaterally ENMT external ear and nose normal, oropharynx normal Neck normal visual inspection Respiratory normal respiratory effort, lungs clear to auscultation Cardiovascular Rate/Rhythm: regular rate Gastrointestinal (Abdomen) normal bowel sounds, soft, nontender, no hepatosplenomegaly Musculoskeletal Head/Neck/Chest: normocephalic and head atraumatic Neurologic moves all extremities Psychiatric Orientation: alert and oriented x 3 Discharge Data Allergies Allergy/AdvReac Type Severity Reaction Status Date / Time kiwi Allergy Intermediate ITCHY Verified 12/27/19 16:19 lactulose AdvReac Gastrointestinal Verified 12/27/19 16:19 Upset Consultations 12/27/19 15:57 ED Decision to Admit Stat 12/27/19 17:33 Consult Cardiology Routine 12/27/19 17:36 Consult Case Management - Discharge Planning Routine 12/28/19 11:26 Consult Neurology Routine Ordered Studies 12/27/19 14:33 CT head/brain wo con Stat 12/27/19 18:30 MR brain wo/w con Stat 12/28/19 12:07 CT angio neck with con Routine Hospital Course (1) Chest pain: -This is a 79-year-old female with 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 She describes it as a heaviness with electric shocks and indigestion in the left side of her chest rating to her back" and in addition that patient discussed "that she had difficulty finding words for several hours on Monday. " -as per the admitting hospitalist assessments that the chest pain appears atypical in nature, possibly epigastric. History of chronic atypical chest discomfort. Underwent cardiac catheterization by Dr. Bonilla on 03/29/2000 demonstrated essentially normal coronary arteries -no acute EKG changes on presentation. troponins negative x 3 -As per "No objective evidence of ischemia, acute coronary syndrome. Atypical chest discomfort unchanged when discussed with patient and prior medical records reviewed. Consider outpatient stress testing per follow-up post discharge. Recommend conservative medical management. With history of borderline tachybradycardia syndrome, I will not increase beta-concepcion at this time, however, this may be considered in the outpatient setting. Continue other cardiovascular medications as previously ordered. No further inpatient cardiac testing at this time" Echocardiogram 12/28/2019: Ejection Fraction 60-65%. There is mild Left Ventricule Hypertrophy. Grade I diastolic dysfunction. There is mild tricuspid regurgitation. do no suggest pulmonary hypertension. (2) Paroxysmal atrial fibrillation: History of arrhythmias including borderline Tachy-Emiliano Syndrome, asymptomatic SVT, PAT. No atrial fibrillation observed via [facility] last in December 2018 -Continue metoprolol and magnesium (3) Paroxysmal atrial tachycardia: -occasional PAT on telemetry (4) HTN (hypertension): -initially presented to ED on 12/27/2019 with blood pressure 191/82 initially but improved to 164/88 after nitropaste -Continue home dose losartan 100 mg daily, metoprolol succinate 12.5 mg daily -increase the home dose amlodipine from 5 mg to 10 mg daily -her daughter reports that the furosemide 20 mg every other day was a recently prescribed medication for leg edema - her legs do not appear to swollen currently (5) Stroke-like symptom: Stroke-like symptom of slurred speech reported as outpatient (but no evidence of stroke by MRI imaging) right internal carotid artery stenosis -Patient reported garbled speech on Monday that resolved -Patient not on blood thinners of antiplatelets because of History of R occipital intraparenchymal hemorrhage in April 2015 complicated by seizure and Left intraventricular hemorrhage in 2018. -Brain MRI 12/27/2019: No acute intracranial findings. No intracranial mass or pathologic enhancement. Moderate atrophy and small vessel disease. 1.7 cm T2 hypointense focus within the right occipital lobe. This represents hemosiderin deposition at site of hematoma shown on head CT of June 02, 2015. This is chronic. -12/28/2019: no gross speech or swallowing impairments currently, no apparent motor deficits on exam, performed finger to nose testing well. her daughter updated and she requested inpatient neurology consult to assess -no history of diabetes, HBA1c is 6. already on Crestor 20 mg as outpatient, continue -have discussed patient's case with Neurology Dr. Castellon by phone who recommended that a Neck CTA scan. Results show "High-grade/critical stenosis of greater than 90% within the proximal right internal carotid artery. Approximately 25% stenosis within the proximal left internal carotid artery." Dr. Castellon suggests that the right internal carotid stenosis can be follow by a Vascular Surgery clinic as outpatient. (6) Cerebral amyloid angiopathy: History of R occipital intraparenchymal hemorrhage in April 2015 complicated by seizure. Left intraventricular hemorrhage in 2018. (7) Seizure disorder: -Continue home dose Keppra BID (8) RLS (restless legs syndrome): Continue Requip HS (9) GERD (gastroesophageal reflux disease): Continue PPI 12/28/2019 Disposition: discharge to home to family patient should follow up with outpatient [facility] primary care doctor and [facility] neurology Dr. Castellon after the hospital discharge discharge medication to [address] [id number] of amlodipine 10 mg daily previously scheduled clinic appointments prior to this hospital presentation 02/19/2020 1:50 PM Provider Teresa Beltran DO Department Internal Medicine [facility] 02/27/2020 2:00 PM Provider Chadwick Valdez PA-C Department Cardiology [facility] 04/16/2020 11:20 AM Provider Jamaal Castellon DO Department Neurology [facility] Total Time Total Time Spent Total Time Spent (In Minutes): 40 minutes Total Time Includes: Examination of the Patient, Discharge Planning, Medication Reconciliation and Communication With Other Providers Discharge Plan Discharge Items Patient Disposition: Home - Self-Care Reason For Visit: CHEST PAIN Discharge Diagnosis: Chest pain HTN (hypertension) right internal carotid artery stenosis Stroke-like symptom of slurred speech reported as outpatient (but no evidence of stroke by MRI imaging) Cerebral amyloid angiopathy Condition on Discharge: Good Activity: Per Instructions section Non-emergency contact: Primary Care Provider and Neurologist Call non-emergency contact if: you have any medication questions Follow-up/Referrals: Tersea Beltran DO [Primary Care Provider] - Diet: Heart Healthy Addtl Attending Provider Instructions: patient should follow up with outpatient [facility] primary care doctor and [facility] neurology Dr. Castellon after the hospital discharge discharge medication to [address] [id number] of amlodipine 10 mg daily previously scheduled clinic appointments prior to this hospital presentation 02/19/2020 1:50 PM Provider Teresa Beltran DO Department Internal Medicine [facility] 02/27/2020 2:00 PM Provider Chadwick Valdez PA-C Department Cardiology [facility] 04/16/2020 11:20 AM Provider Jamaal Castellon DO Department Neurology [facility] Addtl Manager Respiratory Care Provider Instructions: As per "No objective evidence of ischemia, acute coronary syndrome. Atypical chest discomfort unchanged when discussed with patient and prior medical records reviewed. Consider outpatient stress testing per follow-up post discharge. Recommend conservative medical management. With history of borderline tachybradycardia syndrome, I will not increase beta-concepcion at this time, however, this may be considered in the outpatient setting. Continue other cardiovascular medications as previously ordered. No further inpatient cardiac testing at this time" Echocardiogram 12/28/2019: Ejection Fraction 60-65%. There is mild Left Ventricule Hypertrophy. Grade I diastolic dysfunction. There is mild tricuspid regurgitation. do no suggest pulmonary hypertension. Brain MRI 12/27/2019: No acute intracranial findings. No intracranial mass or pathologic enhancement. Moderate atrophy and small vessel disease. 1.7 cm T2 hypointense focus within the right occipital lobe. This represents hemosiderin deposition at site of hematoma shown on head CT of June 02, 2015. This is chronic. Neck CTA 1. High-grade/critical stenosis of greater than 90% within the proximal right internal carotid artery. 2. Approximately 25% stenosis within the proximal left internal carotid artery. Pending Studies at Discharge: No Stand-Alone Forms: [facility] [place], Smoking Cessation Medications and DC Order Prescriptions: New amlodipine 10 mg tablet 10 mg PO QAM 30 Days Qty: 30 RF: 0 Continued cyanocobalamin (vitamin B-12) [Vitamin B-12] 1,000 mcg Tablet 1,000 mcg PO DAILY RF: 0 ropinirole [Requip] 0.25 mg tablet 0.25 mg PO HS RF: 0 sertraline [Zoloft] 25 mg tablet 25 mg PO DAILY RF: 0 omeprazole 20 mg capsule,delayed release(DR/EC) 20 mg PO DAILY RF: 0 hydrocortisone 2.5 % cream 1 applic TOPICAL BID PRN (Reason: REDNESS ON FACE) RF: 0 furosemide [Lasix] 20 mg tablet 20 mg PO Q OTHER DAY RF: 0 metoprolol succinate [Toprol XL] 25 mg tablet extended release 24 hr 12.5 mg PO DAILY RF: 0 losartan [Cozaar] 100 mg tablet 100 mg PO DAILY RF: 0 fluticasone propionate [Flonase Allergy Relief] 50 mcg/actuation spr ay,suspension 1 spray intranasal BID RF: 0 dicyclomine [Bentyl] 10 mg Capsule 10 mg PO QID PRN (Reason: ABD PAIN) RF: 0 rosuvastatin [Crestor] 20 mg tablet 20 mg PO DAILY RF: 0 potassium chloride [Klor-Con M10] 10 mEq tablet,ER particles/crystals 10 meq PO UD RF: 0 levetiracetam [Keppra] 1,000 mg tablet 1,000 mg PO BID RF: 0 cholecalciferol (vitamin D3) [Vitamin D3] 25 mcg (1,000 unit) Tablet 25 mcg PO DAILY RF: 0 magnesium oxide 400 mg magnesium Tablet 400 mg PO DAILY RF: 0 Discontinued amlodipine 5 mg tablet 5 mg PO DAILY RF: 0 Discharge Orders: Discharge Order (Routine); Ordered 12/28/19 Ordered By: Jorden Cooper Admission Data Admit Date/Time: 12/27/19 17:33 Attending Provider: Jorden Cooper Admit Provider: Sydnee Kelly Primary Care Provider: Teresa Beltran Other Providers: Sydnee Kelly ; Tramaine Carolina ; Jesus Shaver ; Haider Cason ; Bob Stevens ; Magdy Garrido ; Chadwick Valdez ; Ayanna Khan ; Nicole Kern ; Jose Martinez ; Jamaal Castellon.
--- NOTE | 2019-12-29 06:15 | Electrocardiogram Report ---
Test Reason : Blood Pressure : / mmHG Vent. Rate : 067 BPM Atrial Rate : 067 BPM P-R Int : 170 ms QRS Dur : 072 ms QT Int : 418 ms P-R-T Axes : 065 025 056 degrees QTc Int : 441 ms Poor data quality, interpretation may be adversely affected Sinus rhythm with Premature supraventricular complexes Nonspecific ST abnormality Abnormal ECG No previous ECGs available Confirmed by Buddy Catherine ([id number]) on 12/29/2019 6:15:32 AM Referred By: SELF Confirmed By:Buddy Catherine
[2019-12-29] MEDS ORDERED: amLODIPine BESYLATE 5 MG TAB PO SCH (09:00)
== END 2019-12-28 18:08 | disposition home or self-care (01) ==
LOC: ED 13:57 → 2S 13:57 → SUATTDRO 17:33 → 2S 19:24